=== PATIENT | female | born 1975 | race Caucasian/White ===

== ENCOUNTER 2018-04-07 16:15 | Emergency (ER) | payer OTHER ==
[~2018-04-07 16:15] MED LIST: IBUP-1618 PO
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
[2018-04-07] MEDS ORDERED: DIAZEPAM 5 MG TAB PO ONE (17:15)
[2018-04-07] MEDS ORDERED: IBUPROFEN 600 MG TAB PO ONE (17:15)
[2018-04-07] MEDS ORDERED: IBUP600T22 PO (18:03)
[2018-04-07] MEDS ORDERED: DIA5 PO (18:03)
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
[2018-04-07 18:14] VITALS: BP 121/72
== END 2018-04-07 18:15 | disposition home or self-care (01) ==
LOC: ER 16:43
DX: S39.012A Strain of muscle, fascia and tendon of lower back, initial encounter (principal); V89.2XXA Person injured in unspecified motor-vehicle accident, traffic, initial encounter
CPT/HCPCS: 72040; 72072; 99283